=== PATIENT | female | born 1940 | race Caucasian/White ===

== ENCOUNTER 2017-06-03 09:09 | Outpatient (CLI) | payer MEDICARE ==
[~2017-06-03] VITALS: Ht 162.6 cm; Wt 99.0 kg
[2017-06-03] MEDS ORDERED: regadenoson 0.4mg/5ml syringe IV ONE ×2 (10:15→10:59)
[2017-06-03] MEDS ORDERED: nitroGLYCERIN 0.4mg SUBLingual tab SL PRN (10:20)
[2017-06-03] MEDS ORDERED: aminophylline 250mg/10ml inj. IV PRN (10:20)
[2017-06-03 10:53] VITALS: BP 145/64
[2017-06-03] MEDS ORDERED: aminophylline inj. 0 ML IV ONE (10:59)
[2017-06-03 11:06] VITALS: BP 171/74
[2017-06-03 11:07] VITALS: BP 162/51
[2017-06-03 11:08] VITALS: BP 159/64
[2017-06-03 11:09] VITALS: BP 170/47
== END 2017-06-03 23:59 | disposition home or self-care (01) ==
LOC: RAD 09:09
PROVIDERS: ATTEND Internal Medicine Cardiovascular Disease
DX: Z01.818 Encounter for other preprocedural examination (principal); R07.9 Chest pain, unspecified; I10 Essential (primary) hypertension; R94.31 Abnormal electrocardiogram [ECG] [EKG]
CPT/HCPCS: 78452; 93017; A9500; J0280